=== PATIENT | female | born 1950 | race African-American/Black ===

== ENCOUNTER 2017-03-06 08:35 | Outpatient (CLI) | payer BC ==
--- NOTE | 2017-03-06 13:26 | CT ---
EXAM: ABDOMEN CT WITH CONTRAST PELVIC CT WITH CONTRAST: COMPARISON: 05/13/16, 11/19/16, 01/31/16. TECHNIQUE: Abdomen and pelvic CT is performed with IV and oral contrast. Reformatted images are submitted for i nterpretation. FINDINGS: ABDOMEN CT: Lung bases are clear. Heart size is within normal limits. No pericardial effusion. The descending thoracic aorta and abdominal aorta have a normal caliber. No periaortic fat stranding. Intra- and extrahepatic portal venin is patent. Hypoattenuation of the liver due to hepatic steatosis. No enhancing masses in the liver. The spleen , pancreas, and adrenal glands have stable enhancement. There is focal nodularity along the medial l imb of the left adrenal gland, measuring 0.6 cm. Evaluation is incomplete. Attenuation coefficient is 72 Hounsfield units. Symmetric enhancement of the kidneys. Bilaterally, no obstructive uropathy. No gastrohepatic, retrocrural, or periportal lymphadenopathy. No mesenteric mass, lymphadenopathy, free air ,or significant free fluid. There is a small amount of free fluid in the pelvis. Redemonstration of a soft tissue mass with a hyperdensity involving the midline of the abdomen. This mass measures 8.1 x 4.9 cm. There has been interval increase in size. Previously, this mass measur ed 5.5 x 6.8 cm. Intrinsic hyperdensity may represent calcification given the stable appearance. There is no evidence of bowel obstruction. Normal-appearing gastric mucosa and small bowel loops. I leocecal junction is normal. There appears to be a tiny contrast-filled appendix emanating from the cecal apex. There is no evidence of bowel obstruction. PELVIC CT: The urinary bladder is unremarkable. Hysterectomy changes are noted. Redemonstration of a predomina ntly cystic lesion of the right hemipelvis measuring 8.4 cm anterior posterior x 4.4 cm mediolateral x 7.9 cm craniocaudal. Previously, this mass measured 3.7 x 7.0 x 8.9 cm. Slight interval increase in size is noted. No pelvic lymphadenopathy. No free air. There are no lytic or blastic lesions. IMPRESSION: 1. Stable predominantly soft tissue mass in the anterior abdominal soft tissue structures. 2. Redemonstration of predominantly cystic mass in the right hemipelvis. POS: [facility]
[2017-03-06] MEDS ORDERED: Iopamidol 370 76% 50 ML VIAL FS ONE (15:24)
[2017-03-06] MEDS ORDERED: Iopamidol 370 76% 100 ML VIAL ONE (15:24)
== END 2017-03-06 08:36 | disposition home or self-care (01) ==
LOC: CT 08:35
PROVIDERS: ATTEND Internal Medicine Hematology & Oncology
DX: C18.7 Malignant neoplasm of sigmoid colon (principal); C78.7 Secondary malignant neoplasm of liver and intrahepatic bile duct; R19.07 Generalized intra-abdominal and pelvic swelling, mass and lump
CPT/HCPCS: 74177

== ENCOUNTER 2017-05-14 09:26 | Outpatient (CLI) | payer BC ==
[2017-05-14 10:30] LABS: Estimated GFR-MDRD - POC Greater than 90
--- NOTE | 2017-05-14 12:11 | CT ---
CT ANGIOGRAM OF THE CHEST: HISTORY: Possible PE noted on CT from 03/06/2017. The patient has a history of metastatic colon cancer. COMPARISON: None. CORRELATION: Abdomen and pelvis CT from 03/06/2017. TECHNIQUE: A CT angiogram of the chest was performed in the axial plane. Bilateral oblique and coronal three-di mensional reformatted images are submitted for interpretation. FINDINGS: No mediastinal mass, lymphadenopathy, or hematoma. Heart size is within normal limits. No pericardi al effusion. The thoracic aorta and upper abdominal aorta have a normal caliber. No periaortic fat stranding. There appears to be a common origin of the innominate artery and the left carotid artery. The trachea and central bronchi are patent. There are multiple well circumscribed lung parenchymal n odules, worrisome for metastases. The largest nodule is located in the middle lobe and measures 1.2 x 0.9 cm. Additional nodules are noted in both lower lobes and in both upper lobes. No pleural effu johanna or pneumothorax. The upper solid organs are unremarkable. Stable bilateral adrenal gland nodularity. There is adequate contrast opacification of the pulmonary arterial system, to the level of the segmen bayron arteries. No filling defect to suggest thromboembolism. The previously noted filling defect in the right lower lobe segmental and subsegmental arteries is not appreciated on the current exam. No lytic or blastic lesions. IMPRESSION: 1. No evidence of pulmonary artery embolism to the level of the segmental arteries. 2. The previously noted filling defect in the right lower lobe pulmonary arterial system is no longe r evident. POS: [facility]
== END 2017-05-14 09:27 | disposition home or self-care (01) ==
LOC: CT 09:26
PROVIDERS: ATTEND Internal Medicine Hematology & Oncology
DX: C18.7 Malignant neoplasm of sigmoid colon (principal); I26.99 Other pulmonary embolism without acute cor pulmonale
CPT/HCPCS: 71275

== ENCOUNTER 2018-02-23 07:54 | Outpatient (CLI) | payer MEDICARE ==
[2018-02-23 09:06] LABS: Estimated GFR-MDRD - POC Greater than 90
--- NOTE | 2018-02-23 10:59 | CT ---
CT ABDOMEN AND PELVIS WITH IV AND ORAL CONTRAST: History: Colon cancer. Restaging. Comparison: 05-14-17, 03-06-17 FINDINGS: At the lung bases, small calcified nodules have appeared since the prior CT abdomen from 03-06-17 and have enlarged since the CT chest from 05-14-17. At the right posterior costophrenic angle, a mass abu tting the pleura measures up to 0.9 cm. The largest on the left is a 0.7 cm nodule. Tiny left adrenal adenoma is stable. Solid organs of the abdomen are otherwise unremarkable. At the anterior abdominal wall just below the level of the umbilicus, the heterogeneous, somewhat lobulated low density mass h as not changed significantly in shape or appearance, measuring 8.8 cm length x 7.9 cm oblique width x 4.3 cm depth. Calcification throughout the arterial structures. Degenerative changes of the lumbar spine. The heterogeneous complex cystic lobular mass within the right lower pelvis now measures 8.8 cm lengt h x 9.9 cm depth x 5.5 cm width (previously 7.8 x 8.5 x 4.4 cm). IMPRESSION: 1. Interval enlargement of the complex cystic right lower pelvic mass as detailed above. 2. Stable CT appearance of the complex anterior lower abdominal mass. 3. Interval enlargement of the presumed lung base metastatic nodules. POS: [facility]
[2018-02-23] MEDS ORDERED: Iopamidol 370 76% 100 ML VIAL ONE (15:03)
[2018-02-23] MEDS ORDERED: Iopamidol 370 76% 50 ML VIAL FS ONE (15:03)
== END 2018-02-23 07:55 | disposition home or self-care (01) ==
LOC: CT 07:54
PROVIDERS: ATTEND Internal Medicine Hematology & Oncology
DX: C18.7 Malignant neoplasm of sigmoid colon (principal); C78.7 Secondary malignant neoplasm of liver and intrahepatic bile duct; R19.00 Intra-abdominal and pelvic swelling, mass and lump, unspecified site; R91.8 Other nonspecific abnormal finding of lung field
CPT/HCPCS: 74177; 82565

== ENCOUNTER 2018-05-06 07:44 | Outpatient (CLI) | payer MEDICARE ==
[2018-05-06] MEDS ORDERED: Iopamidol 370 76% 100 ML VIAL ONE (11:34)
[2018-05-06] MEDS ORDERED: Iopamidol 370 76% 50 ML VIAL FS ONE (11:34)
--- NOTE | 2018-05-06 12:29 | CT ---
CT CHEST WITH IV CONTRAST: CT ABDOMEN AND PELVIS WITH IV AND ORAL CONTRAST: HISTORY: Metastatic colon cancer. Restaging. COMPARISON: CT chest from 05/14/2017. CT abdomen and pelvis from 02/23/2018. FINDINGS: Multiple noncalcified nodules are again demonstrated throughout each lung. Some measure 1 to 2 mm la rger than on the prior study, on the axial images, and some measure 1 to 2 mm smaller than on the hawa ges from the prior CT chest exam. At the left posterior medial costophrenic angle, the 0.8 cm nodule on today's study is slightly larger than the 0.[address] chest one year ago and 0.[address] abdomen on 02/24/2008. No enlarged lymph nodes are apparent within the mediastinum. The liver, spleen, kidneys, adrenal glands, and pancreas are unremarkable. There is calcification in the arterial structures. Contrast-filled diverticulum projecting medially from the second portion o f the duodenum appears smaller than on the prior study. Postoperative changes, anterior abdominal wall. The lobular, heterogeneous soft tissue density mass, just deep to the anterior abdominal wall, below the level of the umbilicus, is unchanged in size and appearance, at 7.9 cm x 4.3 cm on the axial images. The peripherally enhancing fluid collection adj acent to the posterior aspect of the urinary bladder is also unchanged in size and appearance from pr ior CT, at 9.9 x 5.5 cm in diameter on the axial images. Where there was circumferential wall thicke robinson of the colon, in the right anterior abdomen, on the prior study, that same wall thickening and m ass-like appearance do not persist. No enlarged lymph nodes or free fluid are visible. IMPRESSION: 1. The mass-like appearance and circumferential wall thickening of the transverse colon, in the righ t anterior abdomen, has improved slightly since the prior study. The anterior abdominal solid mass a nd cystic mass within the pelvis are not changed, compared to the prior CT abdomen. 2. Of the bilateral and widespread lung nodules, there has been no significant overall change, as de tailed above. POS: [facility]
== END 2018-05-06 07:45 | disposition home or self-care (01) ==
LOC: CT 07:44
PROVIDERS: ATTEND Internal Medicine Hematology & Oncology
DX: C18.9 Malignant neoplasm of colon, unspecified (principal); C78.7 Secondary malignant neoplasm of liver and intrahepatic bile duct; R19.09 Other intra-abdominal and pelvic swelling, mass and lump; R19.8 Other specified symptoms and signs involving the digestive system and abdomen
CPT/HCPCS: 71260; 74177

== ENCOUNTER 2018-08-21 09:26 | Outpatient (CLI) | payer MEDICARE ==
--- NOTE | 2018-08-21 10:46 | CT ---
Exam: Chest CT with contrast Abdomen CT with contrast Pelvic CT with contrast HISTORY: Metastatic colon cancer. Patient has undergone chemotherapy. Correlation: None. COMPARISON: 05/06/2018, 02/23/2018. FINDINGS: Chest CT: Mediastinum: No mediastinal mass, lymphadenopathy or hematoma. Aorta: Normal caliber. No aneurysm, dissection or periaortic fat stranding. Heart: Normal heart size. No significant pericardial fluid. Trachea and central bronchi: Patent. Pleural spaces: Pleural effusion. Right lung: Multifocal right lung parenchymal metastases. Largest nodule in the right upper lobe kym ures 1.6 x 1.5 cm. Largest nodule in the right lower lobe measures 1.0 x 1.8 cm. Left lung:Multiple nodules. Largest nodule in the left upper lobe measures 0.9 x 0.8 cm. Largest nodu le in the left lower lobe measures 1.1 x 1.4 cm. Comparison made with previous CT demonstrates interval increase in size of the nodules. For example, the largest nodule noted in the right lower lobe previously measured 1.2 x 0.8 cm. Largest nodule in the right upper lobe previously measured 1.2 x 1.1 cm. Nodules in the left lung have also increase d in size. Nodule in the left lung apex previously measured 0.6 x 0.7 cm. Largest nodule in the left lower lobe previously measured 0.9 x 0.7 cm. Pneumothorax: None. Abdomen CT: Gallbladder: Unremarkable. Portal vein: Patent. Liver: Appropriate enhancement.. Spleen: Appropriate enhancement. Pancreas: Appropriate enhancement. Adrenal glands: There are multiple bilateral adrenal gland nodules, similar to the previous examinati on. Largest right adrenal nodule measures 1.4 x 1 1.0 cm. Nodule in the left adrenal gland measures 0.8 cm. Lymphadenopathy: No gastrohepatic, retrocrural or periportal lymphadenopathy. Kidneys: Symmetric enhancement. No obstructive uropathy. Mesentery: No mass, lymphadenopathy, free air or free fluid. Alimentary canal: No evidence of bowel obstruction. There is stable mucosal thickening involving the mid transverse colon. There is associated bowel wall thickening. This abnormal attenuation of the transverse colon is just deep to the findings involving the anterior abdominal wall as described noemi w. Redemonstration of hypoattenuation deep to the anterior abdominal rectus muscles and involving the an terior abdominal rectus muscles measuring 8.3 x 4[address]: Mixed attenuation predominantly hypodense mass in the right hemipelvis measuring 5.6 x 10.8 cm (previ ously measuring 5.5 x 9.8 cm. Osseous structures: No lytic or blastic lesions. IMPRESSION: 1. .Redemonstration of multifocal lung parenchymal metastases. Many of the multiple lung metastatic lesions have increased in size. 2. Redemonstration of a complex mass-like lesion in the right hemipelvis, unchanged. 3. Redemonstration of abnormal attenuation in the anterior abdominal wall. 4. Stable mucosal and wall thickening involving the mid transverse colon. 5. Bilateral adrenal nodularity. Transcribed Date/Time: 08/21/2018 11:18 AM
[2018-08-21] MEDS ORDERED: ISOVUE-370 76%-LOCM 1 ML ONE (16:20)
== END 2018-08-21 09:27 | disposition home or self-care (01) ==
LOC: BICCT 09:26
PROVIDERS: ATTEND Internal Medicine Hematology & Oncology
DX: C18.9 Malignant neoplasm of colon, unspecified (principal); C78.7 Secondary malignant neoplasm of liver and intrahepatic bile duct; E27.8 Other specified disorders of adrenal gland; K63.89 Other specified diseases of intestine; C78.01 Secondary malignant neoplasm of right lung; R19.00 Intra-abdominal and pelvic swelling, mass and lump, unspecified site
CPT/HCPCS: 71260; 74177; Q9966

== ENCOUNTER 2018-11-06 08:42 | Day surgery (SDC) | payer MEDICARE ==
[2018-11-06] MEDS ORDERED: Acetaminophen 500 MG TAB PO SCH (10:00)
[2018-11-06] MEDS ORDERED: diphenhydrAMINE 25 MG CAP PO SCH (10:00)
[2018-11-06] MEDS ORDERED: Sodium Chloride 0.9% 20 ML ONE (10:43)
[2018-11-06 14:35] LABS: Anisocytosis SLIGHT = 6-15 cells (100X) (0-5/hpf); Hemoglobin 8.8 g/dL (12.0-16.0); Lymphocytes 32 % (21-51); MDiff Complete? YES; Mean Corpuscular HGB CONC 32.1 g/dL (32.0-36.0); Mean Corpuscular Hemoglobin 31.3 pg (27.0-31.0); Mean Corpuscular Volume 97.4 fL (78.0-98.0); Mean Platelet Volume 10.3 fL (7.4-10.4); Monocytes 1 % (0-10); Neutrophil 67 % (42-75); Platelet Count 90 thou/uL (130-400); Platelet Morphology Comment Appears Decreased; RBC Distribution Width 16.5 % (11.5-14.5); Red Blood Cell (RBC) Count 2.82 mill/uL (4.20-5.40); White Blood Cell (WBC) Count 2.6 thou/uL (4.8-10.8)
[2018-11-06 16:44] VITALS: BP 169/74; TEMP 98.8
== END 2018-11-06 17:02 | disposition home or self-care (01) ==
LOC: ONC/OP 08:42
PROVIDERS: ATTEND Internal Medicine Hematology & Oncology
PROC: 30233N1 Transfusion of Nonautologous Red Blood Cells into Peripheral Vein, Percutaneous Approach (ICD-10-PCS; principal; 2018-11-06)
DX: D64.9 Anemia, unspecified (principal); D69.6 Thrombocytopenia, unspecified; Z88.2 Allergy status to sulfonamides; Z88.7 Allergy status to serum and vaccine; Z88.8 Allergy status to other drugs, medicaments and biological substances
CPT/HCPCS: 36430; 85025; 86850; 86900; 86901; J1642; P9016; Q0163

== ENCOUNTER 2019-01-05 07:57 | Outpatient (CLI) | payer MEDICARE ==
[2019-01-05 09:40] LABS: Estimated GFR-MDRD - POC Greater than 90
--- NOTE | 2019-01-05 10:28 | CT ---
CT CHEST AND ABDOMEN AND PELVIS WITH IV CONTRAST: HISTORY: Metastatic colon cancer. COMPARISON: 08/21/2018 FINDINGS: THORAX Lungs: Multiple bilateral pulmonary nodules are again seen within the lungs bilaterally. The larges t nodule in the right upper lobe previously measured 1.6 cm x 1.5 cm and now measures 2.3 cm x 2.2 cm. The largest pleural-based pulmonary nodule in the right lower lobe previously measured 1.8 cm x 1 cm and now measures 2.7 cm x 1.8 cm. The largest pulmonary nodule measured in the left lower lobe on the prior study measured 1.5 cm x 1.2 cm and now measures 2.1 cm x 1.3 cm. There is an enlar ged pleural-based pulmonary nodule seen in superior segment right lower lobe previously measuring 2.3 cm x 1.6 cm and now measures 2.9 cm x 1.7 cm. No definite new pulmonary nodule is seen but there has been slight interval increase in size of all of the previously noted bilateral pulmonary nodules. Pleura: A very tiny right pleural effusion is present. Lymph nodes: No lymphadenopathy. Mediastinum: The right internal jugular vein Mediport catheter remains in place. No enlarged medias tinal lymph nodes are seen. Chest wall: No abnormalities. ABDOMEN AND PELVIS: Liver: Within normal limits. Gallbladder: Within normal limits. \ Pancreas: Within normal limits. Spleen: Within normal limits. Adrenal glands: Tiny left adrenal nodule measuring less than 1 cm is again seen and stable. The two closely adjacent nodules involving the right adrenal gland are again seen and also stable in size each again measuring less than 1 cm. Kidneys: Within normal limits. Urinary Bladder: Mostly decompressed. Reproductive organs: A normal-appearing uterus is not visualized and may be surgically absent or poli y small in size. Bowel: Normal in caliber. Adenopathy: No lymphadenopathy within the abdomen or pelvis. Peritoneum/retroperitoneum: Previously noted lobulated heterogeneous mass in the right aspect of the pelvis is again seen posterior and lateral to the urinary bladder with greatest axial dimensions on prior study of 10.9 cm x 5.6 cm and dimensions on today's examination of 11.3 cm x 6.1 cm. Abdominal wall: Post surgical changes of the anterior abdominal wall in an infraumbilical location a re noted with an area of slight increased density, which may be related to an area of scarring, however the previously noted lobulated heterogeneous mass like density within the abdominal wall at t he level of the lower aspect of the rectus abdominis musculature is again seen with this heterogenous mass like area previously measuring 8.3 cm transverse by 4.6 cm AP with measurement obta ined on today's examination of 9.7 cm transverse by 5.3 cm AP. There is circumferential wall thickening involving a small portion of the colon adjacent to the mass in the anterior abdominal wall and the area of masslike thickening does persist on today's exam. Osseous structures: Degenerative changes are seen in the spine. No suspicious lytic or sclerotic os seous lesions are identified. IMPRESSION: 1. Diffuse metastatic lung disease with multiple bilateral pulmonary nodules, all of which have incr eased in size from prior exam. No new pulmonary nodule is seen. 2. The complex cystic mass like lesion with associated solid component is again seen in the right he mipelvis with measurements slightly increased from prior study. 3. Abnormal mass like attenuation in the anterior abdominal wall at the level of the pelvis. This ar ea of masslike heterogeneity has slightly increased in size from the prior exam. 4. Stable area of mucosal thickening involving the mid transverse colon, which extends into the pelv is. This area of mass like thickening is adjacent to the mass like attenuation in the abdominal wall. 5. Stable nodules in each adrenal gland. Transcribed Date/Time: 01/05/2019 10:45 AM
== END 2019-01-05 07:58 | disposition home or self-care (01) ==
LOC: CT 07:57
PROVIDERS: ATTEND Internal Medicine Hematology & Oncology
DX: C18.9 Malignant neoplasm of colon, unspecified (principal); C78.7 Secondary malignant neoplasm of liver and intrahepatic bile duct; R91.8 Other nonspecific abnormal finding of lung field; E27.8 Other specified disorders of adrenal gland; K63.89 Other specified diseases of intestine; R19.09 Other intra-abdominal and pelvic swelling, mass and lump
CPT/HCPCS: 71260; 74177; 82565

== ENCOUNTER 2019-05-25 08:24 | Outpatient (CLI) | payer MEDICARE ==
--- NOTE | 2019-05-25 11:18 | CT ---
EXAM: CT chest, abdomen, and pelvis with IV contrast: HISTORY: Metastatic colon cancer. Evaluate for treatment response. Patient currently on chemotherapy. COMPARISON: 01/05/2019. FINDINGS: CT THORAX: Lungs: Multiple bilateral pulmonary nodules are again seen diffusely throughout the lungs bilaterally . Largest nodule in the right upper lobe measures 2.8 cm x 2.3 cm with prior measurement of 2.3 cm x 2.2 cm. This nodule now demonstrates cavitation. Largest pleural-based pulmonary nodule in the righ t lower lobe previously measured 2.9 cm x 1.7 cm and now measures 3.5 cm x 1.7 cm and demonstrates cavitation. There has been interval cavitation of several additional bilateral pulmonary nodules. The re has been interval enlargement of a left lower lobe pulmonary nodule which is also now cavitated measuring 1.7 cm x 1.6 cm, and on the prior study this left lower lobe pulmonary nodule measured 1.3 cm x 1.1 cm. There has also been slight interval enlargement of additional pulmonary nodules. No new pulmonary nodules are seen. Pleura: Tiny bilateral pleural effusions are present. Lymph nodes: No lymphadenopathy. Mediastinum: Trace pericardial effusion is present. A right internal jugular vein Mediport catheter i s again seen. Small hiatal hernia is present. Chest wall: No abnormalities CT ABDOMEN AND PELVIS: Liver: Within normal limits. Gallbladder: Within normal limits. \ Pancreas: Within normal limits. Spleen: Within normal limits. Adrenal glands: 2 closely adjacent right adrenal nodules with tiny left adrenal nodule are again seen and stable in size and appearance. Kidneys: There is mild right hydronephrosis and hydroureter also present on prior exam. Left kidney h as a normal CT appearance Urinary Bladder: Decompressed. Reproductive organs: Normal appearing uterus is not visualized. May be surgically absent or small in size. Bowel: Persistent area of abnormal bowel wall thickening involving the mid transverse colon which is contiguous with lobulated mass in the anterior abdominal wall. There is no evidence of a bowel obstruction. Peritoneum/retroperitoneum: Previously noted lobulated heterogeneous mass in the central and right as pect of the pelvis is again seen measuring 10 cm craniocaudal x11 cm AP x6.2 cm transverse, and these measurements are similar to prior exam. This does result in mass effect on the adjacent urinary bladder. Abdominal wall: Again noted is a large heterogeneous mass seen in the anterior abdominal wall the lev el of the pelvis with areas of enhancement. This area has continued to enlarge when dating back to a prior study in 2018 where this area of abnormal attenuation measured 7.9 cm x 4.3 cm in axial dimen sions and now measures 12 cm x 6.2 cm. Findings could represent soft tissue sarcoma in this region. This is in the region of incision site. Adenopathy:No lymphadenopathy within the abdomen or pelvis. Osseous structures: Multilevel degenerative changes in the spine. No suspicious lytic or sclerotic os seous lesions are identified. IMPRESSION: 1. Diffuse metastatic lung disease with multiple bilateral pulmonary nodules some of which have incre ased in size from the prior exam with several of the pulmonary nodules now demonstrating cavitation. 2. Complex cystic mass in the pelvis is again seen with measurements similar to study on 01/05/2019. 3. Interval enlargement of mass within anterior pelvis in the anterior abdominal wall. There are area s of enhancement within this mass. This mass continues to enlarge when dating back to study in 2018. Masslike area of thickening involving the mid transverse colon which appears contiguous with th is lobulated mass is again seen. Findings could be related to patient's colonic neoplasm with extension of the mass into the soft tissues. However, soft tissue sarcoma with involvement of a porti on of the colon in this region is also a possibility. 4. Stable adrenal nodules.
[2019-05-25] MEDS ORDERED: Iopamidol 370 76% 100 ML VIAL ONE (14:39)
[2019-05-25] MEDS ORDERED: Iopamidol 370 76% 50 ML VIAL FS ONE (14:39)
== END 2019-05-25 08:25 | disposition home or self-care (01) ==
LOC: CT 08:24
PROVIDERS: ATTEND Internal Medicine Hematology & Oncology
DX: C18.9 Malignant neoplasm of colon, unspecified (principal); C78.7 Secondary malignant neoplasm of liver and intrahepatic bile duct; C78.00 Secondary malignant neoplasm of unspecified lung; R91.8 Other nonspecific abnormal finding of lung field; R19.07 Generalized intra-abdominal and pelvic swelling, mass and lump; E27.8 Other specified disorders of adrenal gland
CPT/HCPCS: 71260; 74177; Q9967

== ENCOUNTER 2019-08-13 07:49 | Outpatient (CLI) | payer MEDICARE ==
[2019-08-13] MEDS ORDERED: Iopamidol 370 76% 100 ML VIAL ONE (09:56)
--- NOTE | 2019-08-13 12:32 | CT ---
CT OF CHEST AND ABDOMEN AND PELVIS PERFORMED WITH INTRAVENOUS CONTRAST ENHANCEMENT: HISTORY: Metastatic colon cancer evaluation for therapeutic response. COMPARISON: A 05/25/2019 exam. FINDINGS: Numerous bilateral pulmonary nodules are again identified. Some of these are cavitary in appearance. The number has not increased. There has not been any improvement in the size. There is subtle hetal nge that suggest some slight worsening. This is mainly related to a pleural-based nodule seen in the superior segment of the right lower lobe axial image 28. It measures 3.7 cm in maximum dimension as compared to 3.5 cm, not a significantly difference, but it no longer has a cavitary appearance. Felix e other nodules show very subtle questionable increase in size of 1-2 mm. There is no significant mediastinal or hilar or axillary lymphadenopathy. CT OF ABDOMEN PERFORMED WITH CONTRAST ENHANCEMENT: There are diffuse fatty changes of the liver which is within normal limits of size. The spleen, panc reas, and gallbladder regions appear unremarkable. Right and left adrenal glands are stable in appearance, nodularity unchanged. Right and left kidneys are normal in size. A tiny hypodensity involving the left kidney was compatible with a cyst. There is some minimal dilatation of the right collecting system and right ureter related to the somewhat o blong-shaped deeper pelvic mass which is stable in size measuring 6.3 x 11 cm which is basically the same measurement as was obtained on the prior examination. There is no significant periaortic or mes enteric adenopathy. The soft tissue mass seen in the lower abdomen and upper pelvis region involving the region of the an terior wall abdominal musculature is also unchanged in appearance. It measures 6.5 x 11.6 cm in size as compared to measurements obtained at the same level of 6.2 x 12 cm on the prior study. Review of osseous structures does not show any lytic or blastic bony change. IMPRESSION: 1. No improvement in the appearance of the chest, abdomen, or pelvis. There has been some very subt le increase in size of some of the pulmonary nodules. 2. Stable appearance to the soft tissue mass along the lower abdominal wall musculature and the deep er pelvic mass. 3. There is nodular appearance to both adrenal glands. POS: [facility]
== END 2019-08-13 07:50 | disposition home or self-care (01) ==
LOC: CT 07:49
PROVIDERS: ATTEND Internal Medicine Hematology & Oncology
DX: C18.7 Malignant neoplasm of sigmoid colon (principal); C78.7 Secondary malignant neoplasm of liver and intrahepatic bile duct; R91.8 Other nonspecific abnormal finding of lung field
CPT/HCPCS: 71260; 74177; Q9967

== ENCOUNTER 2019-08-28 12:13 | Inpatient (IN) | payer MEDICARE ==
[~2019-08-28 12:13] MED LIST: Iopamidol-370 76% 500 ML 1 ML ONE
[2019-08-28] MEDS ORDERED: Metoclopramide HCl 10 MG/2 ML VIAL ONE (12:32)
[2019-08-28] MEDS ORDERED: Morphine 4 MG/ML VIAL ONE (12:32)
[2019-08-28] MEDS ORDERED: Cefepime 2 GM VIAL ONE (12:32)
--- NOTE | 2019-08-28 12:49 | RAD ---
EXAM: XR Chest 1 View Portable PROVIDED CLINICAL HISTORY: Fever and abdominal pain COMPARISON: CT 08/13/2019 FINDINGS: Cardiac and mediastinal silhouette is within normal limits. Right IJ implanted port is noted, tip pro jecting in expected region of SVC. Numerous bilateral pulmonary nodules are redemonstrated including cavitary nodule involving the left lung. There is no pleural fluid or pneumothorax apparent . IMPRESSION: Bilateral pulmonary nodules are redemonstrated, compatible with known metastatic disease.
[2019-08-28 12:50] LABS: #Eosinphils 0.2 thou/uL (0.0-0.7); #Lymphocytes 1.8 thou/uL (1.20-3.40); #Monocytes 0.6 thou/uL (0.11-0.59); #Neutrophils 9.5 thou/uL (1.40-6.50); %Basophils 0.3 % (0.0-1.0); %Eosinophils 1.7 % (0.0-10.0); %Lymphocytes 15.1 % (21.0-51.0); %Monocytes 4.5 % (0.0-10.0); %Neutrophils 78.4 % (42.0-75.0); Hemoglobin 12.3 g/dL (12.0-16.0); Mean Corpuscular HGB CONC 32.1 g/dL (32.0-36.0); Mean Corpuscular Hemoglobin 28.9 pg (27.0-31.0); Mean Platelet Volume 7.7 fL (7.4-10.4); Platelet Count 410 thou/uL (130-400); RBC Distribution Width 15.4 % (11.5-14.5); Red Blood Cell (RBC) Count 4.26 mill/uL (4.20-5.40); White Blood Cell (WBC) Count 12.1 thou/uL (4.8-10.8)
[2019-08-28 13:12] LABS: ALT (SGPT) 20 U/L (8-55); AST (SGOT) 21 U/L (5-34); Albumin 3.5 g/dL (3.4-4.8); Alkaline Phosphatase 72 U/L (40-110); Anion Gap 18 mmol/L (10-20); BUN (Urea Nitrogen) 6 mg/dL (9.8-20.1); Bilirubin, Total 0.8 mg/dL (0.2-1.2); Calc. Creatinine Clearance 0 mL/min (70-130); Carbon Dioxide 27 mmol/L (23-31); Chloride 101 mmol/L (98-107); Estimated GFR-MDRD 88; Globulin 4.1 g/dL (2.4-3.5); Glucose 149 mg/dL (80-115); Lipase Less than 4 U/L (8-78); Protein, Total 7.6 g/dL (6.0-8.3); Sodium 143 mmol/L (136-145)
[2019-08-28 13:26] LABS: Calcium 5.9 mg/dL (7.8-10.44)
--- NOTE | 2019-08-28 13:53 | CT ---
EXAM: CT Abdomen Pelvis W Con PROVIDED CLINICAL HISTORY: Abdominal pain COMPARISON: 08/13/2019 FINDINGS: Bilateral pulmonary nodules are redemonstrated, similar to prior. The liver, spleen, pancreas, kidneys and adrenal glands demonstrate a stable CT appearance. There is moderate gallbladder distention without pericholecystic inflammatory change. Anterior abdominal wall soft tissue masses are redemonstrated, without significant interval change wi th respect to prior. Soft tissue mass within the pelvic cul-de-sac region demonstrates interval decrease in size and now demonstrates interval gas, suggesting either communication with the adjacent rectum or necrosis related to therapy. There is no evidence for bowel obstruction. No inflammatory fat stranding, free fluid or free air isabella arent. No regional lymph node enlargement evident. The osseous structures demonstrate no concerning lytic or blastic lesions. IMPRESSION: 1. Interval decrease in size of pelvic cul-de-sac mass, now demonstrating internal gas that may be on the basis of necrosis or communication with the rectum. 2. Additional significant interval change with respect to the prior examination is not apparent.
[2019-08-28 14:13] LABS: Bacteria/HPF None Seen HPF (None Seen); Bilirubin Negative (Negative); Blood, Urine Negative (Negative); Clarity Clear (Clear); Glucose, Urine (Dipstick) Normal (Negative); Leukocyte 250 Leu/uL (Negative); Nitrite Negative (Negative); Protein, Urine (Dipstick) 20 mg/dL (Neg-Trace); RBC/HPF 0-3 HPF (0-3)
[2019-08-28 15:51] LABS: Lactic Acid 0.9 mmol/L (0.5-2.2)
[2019-08-28] MEDS ORDERED: Acetaminophen 325 MG TAB PO PRN (16:38)
[2019-08-28] MEDS ORDERED: Potassium Chloride 20 MEQ TAB PO SCH (16:45)
[2019-08-28 17:24] VITALS: BMI 33.7
[2019-08-28] MEDS: Sodium Chloride 0.9% 1,000 ML IV SCH (17:37)
[2019-08-28] MEDS ORDERED: Magnesium 2 GM/50 ML 2 GM in Premix Bag 1 BAG IVPB SCH (18:15)
[2019-08-28] MEDS ORDERED: Ergocalciferol 1.25 MG(50,000 UNITS) CAP PO SCH (18:45)
[2019-08-28] MEDS: Morphine 4 MG/ML VIAL SLOW IVP PRN ×2 (19:18→23:57)
--- NOTE | 2019-08-28 19:28 | HP ---
PRIMARY CARE PHYSICIAN: Dr. Jules at [facility]. CHIEF COMPLIANT: The patient presents for evaluation of abdominal pain. HISTORY OF PRESENT ILLNESS: The patient is a 68-year-old female with past medical history significant for colon cancer which she is currently getting chemp treatment for. She presents today to the ER for abdominal pain and fever. This pain began approximately 1 week ago and it is more severe in the right lower quadrant, where she states her tumor is from her colon cancer. Denies any relieving factors or exacerbating factors related to this pain. She denies any ill contacts. She had a subjective fever of 102 at home. She has also noted mucoid type bowel movements over the past few weeks. Regarding the mucoid type bowel movement, she has had numerous stool tests completed through [facility], which have all resulted as negative so far per the ER physician. In the ER today, she was seen, evaluated and they completed a CT of the abdomen and pelvis with contrast, which actually showed a decrease in the size of the pelvic cul-de-sac mass. No evidence of bowel obstruction. No regional lymph node enlargement evident. She was swabbed for flu A and B and both were negative. Her lactic acid was elevated at 3.4 along with her white blood cells being elevated at 12.1, so she received a liter of normal saline, vancomycin 2 g IV, Levaquin 750 mg IV, cefepime 2 g IV. She also received Reglan 10 mg and Morphine 4 mg, both IV while in the ER. She is to be admitted to the Oncology unit. PAST MEDICAL HISTORY: Colon cancer, hypertension, and depression. PAST SURGICAL HISTORY: Colon resection, and hysterectomy. ALLERGIES: COMPAZINE, SULFA, TETANUS, AND BACTRIM. MEDICATIONS: Per ER records, will reconcile once to unit amLODIPine Sat August 28, 2019 15:03 LADI Siddiqui Lacee TABLET : Strength - 10 mg : ORAL Patient Dose: 1 tab(s) Oral once a day. losartan Sat August 28, 2019 15:03 LADI Siddiqui Lacee TABLET : Strength - 100 mg : ORAL Patient Dose: 1 tab(s) Oral once a day. metoprolol tartrate oral Sat August 28, 2019 15:03 LADI Siddiqui Lacee TABLET : Strength - 100 mg : ORAL Patient Dose: 1 tab(s) Oral once a day. Zofran ODT Sat August 28, 2019 15:03 LADI Siddiqui Cassandra TABLET,DISINTEGRATING : Strength - 4 mg : ORAL Patient Dose: 12 tab(s) Oral As Needed. diphenoxylate-atropine Sat August 28, 2019 15:03 LADI Siddiqui, Cassandra tablet : Strength - 2.5 mg-0.025 mg : ORAL Patient Dose: Unknown. PriLOSEC capsule,delayed release Sat August 28, 2019 15:04 LADI Siddiqui, Cassandra capsule,delayed release(DR/EC) : Strength - 20 mg : ORAL Patient Dose: 1 tab(s) Oral once a day. Stivarga Sat August 28, 2019 15:04 LADI Siddiqui, Cassandra tablet : Strength - 40 mg : ORAL Patient Dose: Unknown. venlafaxine Sat August 28, 2019 15:05 LADI Siddiqui, Cassandra tablet extended release 24hr : Strength - 37.5 mg : ORAL Patient Dose: 2 tab(s) Oral once a day. SOCIAL HISTORY: The patient lives at home with her . She denies smoking , any alcohol use, or any illicit drug use. FAMILY HISTORY: Her mother at the age of 82 from ovarian cancer and her father from prostate cancer at the age of 87. REVIEW OF SYSTEMS: All other review of systems are negative unless indicated in the HPI. PHYSICAL EXAMINATION: VITAL SIGNS: Blood pressure 144/81, pulse 72, respiratory rate 16, temperature 98.7 orally, pain 5, O2 saturation 99% on room air. GENERAL: Awake, alert, responsive, in no apparent distress. NECK: Supple, nontender. No lymphadenopathy. No JVD. LUNGS: Clear to auscultation bilaterally. No wheezing, rhonchi, or rales. HEART: Normal S1 and S2. Regular rate and rhythm. No significant murmurs. No gallops. ABDOMEN: Soft, present bowel sounds. Tenderness noted diffusely, but greater in the right lower quadrant. Mass palpated in the right lower quadrant. EXTREMITIES: No edema noted. Peripheral pulses are intact. NEUROLOGIC: No focal deficits. Cranial nerves intact. PSYCHIATRIC: Appropriate behavior. LABORATORY DATA: Potassium low at 3.0, creatinine 0.79, GFR 88. BUN 6, glucose 149, calcium 5.9, lactic acid 2.4, white blood cell 12.1, hemoglobin 12.3, hematocrit 38.4, platelets 410. IMPRESSION: 1. Abdominal pain, acute. 2. Colon cancer, chronic. 3. Hypertension. PLAN: 1. Inpatient status in the hospital at the Oncology unit. 2. Oncology Services to be consulted. 3. Palliative Care Services to be consulted. The patient wishes to discuss future plans and goals with them. 4. We will continue the patient on empiric antibiotics, 5. Lab to draw vitamin D and magnesium levels and replace as necessary. 6. Pain control with morphine, which helped her in the ER. 7. Await blood and urine culture results. 8. Replace potassium, calcium and other electrolytes. 9. DVT prophylaxis of Lovenox 40 mg daily. CODE STATUS: FULL, discussed with patient DPOA is her , Monroe Taylor, phone #[phone] and [phone]. Job ID: [id number] [facility]
[2019-08-28] MEDS: Calcium Carbonate 500 MG ChewTAB PO SCH (20:45)
[2019-08-28] MEDS: Cefepime 2 GM in Sodium Chloride 0.9% 100 ML IVPB SCH (23:52)
[2019-08-29] MEDS ORDERED: HYDROcodone/Acetaminophen 10/325 mg Tablet PO PRN ×2 (00:47→00:52)
[2019-08-29] MEDS ORDERED: Vancomycin 1.5 GRAM/300 ML BAG 1.5 GM in Premix Bag 1 BAG IVPB SCH (03:00)
[2019-08-29] MEDS: HYDROcodone/Acetaminophen 10/325 mg Tablet PO PRN (05:46)
[2019-08-29 06:27] LABS: Anion Gap 12 mmol/L (10-20); BUN (Urea Nitrogen) 4 mg/dL (9.8-20.1); Calc. Creatinine Clearance 120 mL/min (70-130); Carbon Dioxide 27 mmol/L (23-31); Chloride 107 mmol/L (98-107); Estimated GFR-MDRD Greater than 90; Glucose 111 mg/dL (80-115); Sodium 143 mmol/L (136-145)
[2019-08-29 06:48] LABS: Calcium 5.3 mg/dL (7.8-10.44); Potassium 2.9 mmol/L (3.5-5.1)
[2019-08-29 07:08] LABS: #Eosinphils 0.1 thou/uL (0.0-0.7); #Lymphocytes 1.5 thou/uL (1.20-3.40); #Monocytes 0.6 thou/uL (0.11-0.59); %Basophils 0.4 % (0.0-1.0); %Eosinophils 1.3 % (0.0-10.0); %Lymphocytes 14.9 % (21.0-51.0); %Monocytes 5.9 % (0.0-10.0); %Neutrophils 77.5 % (42.0-75.0); Hemoglobin 9.9 g/dL (12.0-16.0); Mean Corpuscular HGB CONC 31.7 g/dL (32.0-36.0); Mean Corpuscular Hemoglobin 28.8 pg (27.0-31.0); Mean Corpuscular Volume 90.7 fL (78.0-98.0); Mean Platelet Volume 7.5 fL (7.4-10.4); Platelet Count 326 thou/uL (130-400); RBC Distribution Width 15.4 % (11.5-14.5); Red Blood Cell (RBC) Count 3.44 mill/uL (4.20-5.40); White Blood Cell (WBC) Count 10.3 thou/uL (4.8-10.8)
[2019-08-29] MEDS ORDERED: Calcium Gluconate 4.6 MEQ in Sodium Chloride 0.9% 100 ML IVPB SCH (07:28)
[2019-08-29] MEDS ORDERED: Magnesium 2 GM/50 ML 2 GM in Premix Bag 1 BAG IVPB SCH (07:30)
[2019-08-29] MEDS ORDERED: Potassium Chloride 20 MEQ TAB PO SCH ×2 (08:00→12:00)
--- NOTE | 2019-08-29 08:04 | PDOC.HOSPP ---
- Subjective Encounter Date: 08/29/19 Encounter Time: 08:30 Subjective: Patient seen and examined at this time. States she is feeling so much better than the previous day, her pain has decreased and is being controlled with [place] and her diarrhea has decreased. - Objective Vital Signs & Weight: Vital Signs (12 hours) Temp Pulse Resp BP Pulse Ox 08/29/19 05:40 98.7 F 68 18 143/62 H 98 08/29/19 00:00 98.9 F 62 133/64 95 Weight Weight 203 lb 3 oz I&O: 08/28/19 08/29/19 08/30/19 06:59 06:59 06:59 Intake Total 680 1139 Balance 680 1139 Result Diagrams: 08/29/19 05:59 08/29/19 05:59 Hospitalist ROS - Medication Medications: Active Medications Generic Name Dose Route Start Last Admin Trade Name Freq PRN Reason Stop Dose Admin Hydrocodone Bitart/Acetaminophen 2 tab 08/29/19 00:47 08/29/19 05:46 [place] 10/325 PO 2 tab Q6H PRN Administration Severe Pain (7-10) Calcium Carbonate 1,000 mg 08/28/19 21:00 08/28/19 20:45 Tums PO 1,000 mg BID ZARIA Administration Sodium Chloride 1,000 mls @ 75 mls/hr 08/28/19 16:38 08/28/19 17:37 Normal Saline 0.9% IV 1,000 mls .[id number] ZARIA Administration Cefepime HCl 2 gm/ Sodium 100 mls @ 200 mls/hr 08/28/19 23:59 08/28/19 23:52 Chloride IVPB 100 mls 1200,2359 ZARIA Administration Vancomycin HCl 1.5 gm/ Device 300 mls @ 200 mls/hr 08/29/19 03:00 08/29/19 03 :09 IVPB 300 mls 0300,1500 ZARIA Administration Sodium Chloride 10 ml 08/28/19 22:05 08/28/19 23:58 Flush - Normal Saline IVF 10 ml PRN PRN Administration Saline Flush - Exam General Appearance: NAD, awake alert Eye: PERRL, anicteric sclera Neck: supple, symmetric, no JVD, no lymphadenopathy Heart: RRR, no murmur, no gallops, no rubs, normal peripheral pulses Respiratory: CTAB, no wheezes, no rales, no ronchi Gastrointestinal: soft, non-distended, normal bowel sounds, tender to palpation Gastrointestinal - other findings: palpable mass to lower R quadrant Extremities: no cyanosis, no edema Skin: normal turgor, no lesions, no rashes Neurological: no focal deficits Musculoskeletal: normal tone, normal strength Psychiatric: normal affect, normal behavior Hosp A/P (1) Abdominal pain Code(s): R10.9 - UNSPECIFIED ABDOMINAL PAIN Status: Acute Qualifiers: Abdominal location: generalized Qualified Code(s): R10.84 - Generalized abdominal pain (2) UTI (urinary tract infection) Status: Acute (3) Hypertension Code(s): I10 - ESSENTIAL (PRIMARY) HYPERTENSION Status: Chronic Qualifiers: Hypertension type: essential hypertension Qualified Code(s): I10 - Essential (primary) hypertension (4) Metastatic colon cancer in female Code(s): C78.5 - SECONDARY MALIGNANT NEOPLASM OF LARGE INTESTINE AND RECTUM Status: Chronic - Plan Consults: Palliative Care Continue to replace potassium, magnesium, calcium Await oncology and palliative care consults Waiting on cultures to result- no growth currently, continue antibiotics Pain management Resume home medications
[2019-08-29] MEDS: Calcium Carbonate 500 MG ChewTAB PO SCH ×2 (08:09→20:11)
[2019-08-29] MEDS: Enoxaparin Sodium 40 MG/0.4 ML SYRINGE SC SCH ×2 (08:10→08:19)
[2019-08-29] MEDS: Sodium Chloride 0.9% 1,000 ML IV SCH (08:11)
[2019-08-29] MEDS: Metoprolol Tartrate 100 MG TAB PO SCH ×2 (08:21→20:11)
[2019-08-29] MEDS: Venlafaxine HCl XR 75 MG CAP PO SCH (08:21)
[2019-08-29] MEDS: Cefepime 2 GM in Sodium Chloride 0.9% 100 ML IVPB SCH (12:52)
[2019-08-29 15:40] LABS: Anion Gap 12 mmol/L (10-20); BUN (Urea Nitrogen) 6 mg/dL (9.8-20.1); Calc. Creatinine Clearance 106 mL/min (70-130); Carbon Dioxide 26 mmol/L (23-31); Chloride 108 mmol/L (98-107); Estimated GFR-MDRD Greater than 90; Glucose 110 mg/dL (80-115); Potassium 3.5 mmol/L (3.5-5.1); Sodium 142 mmol/L (136-145)
--- NOTE | 2019-08-29 17:19 | PDOC.EVN ---
Event Note - Event Note Event Note: Patient seen and examined and discussed with Salome FARR., and agree with her assessment. Ms. Taylor says that the abdominal pain is at a level of 6/10 even with the Fentanyl patch, but it was just placed about 45 minutes before I saw her. She says her appetite has improved. No new complaints., on exam, she has some lower abdominal tenderness, but no rebound or guarding, bowel sounds are present. Will continue with empiric antibiotics, and will correct electrolytes as needed. Continue Fentanyl and [place] for break-through pain.
--- NOTE | 2019-08-29 19:29 | CON ---
DATE OF CONSULTATION: 08/29/2019 HISTORY OF PRESENT ILLNESS: Ms. Taylor is a 68-year-old female with a longstanding history of metastatic colon cancer with multiple metastases to the pelvis including the right ovary and the left pelvis. These masses have been slowly growing over the last few months, on Stivarga oral treatment. We did about 10 days ago have a discussion about the fact that the Stivarga was no longer working adequately and that she had very few treatment options left. At that time, she declined referral for a clinical trial and also declined hospice, but I did refer her to palliative care. Since that visit in the office, she has developed acute-onset diarrhea with some blood in the stool. She also had worsening abdominal pain as well as fever at home up to 102. She presented to the emergency room. She had stopped her Stivarga, although this was not thought to be the cause of the diarrhea. On admission here, CAT scan showed a new finding of air found in the pelvic mass and some concern for necrosis versus infection. She was admitted for further workup. She has been on IV antibiotics for almost 24 hours and IV fluids and states she does feel better. Her abdominal pain continues. She has less diarrhea, but still has incontinence. She has not noticed blood in her stool since admission. PAST MEDICAL HISTORY: 1. Metastatic colon cancer, progressing to multiple lines of therapy. 2. Longstanding history of right lower quadrant abdominal pain secondary to metastatic disease. 3. Hypertension. 4. depression. CURRENT MEDICATIONS: 1. Tylenol p.r.n. 2. Clever p.r.n. 3. Tums 1000 mg p.o. b.i.d. 4. Cefepime 2 g IV q.12 hours. 5. Lovenox 40 mg subcu daily. 6. Drisdol 1.25 mg p.o. q.7 days. 7. Levaquin 750 mg IV q.24 hours. 8. Lopressor 50 mg p.o. b.i.d. 9. Morphine 2 mg IV q.4 hours p.r.n. 10. Protonix 40 mg p.o. daily. 11. K-Dur 40 mEq p.o. daily. 12. Vancomycin 1.5 g IV q.12 hours. 13. Effexor 75 mg p.o. daily. ALLERGIES: COMPAZINE AND TETANUS. SOCIAL HISTORY: She lives in town with her , who is quite supportive. She denies tobacco or alcohol use. Her daughter is also quite supportive and involved in her care. FAMILY HISTORY: Noncontributory. REVIEW OF SYSTEMS: Otherwise 10-point review of systems is negative. Please see the history of present illness. PHYSICAL EXAMINATION: VITAL SIGNS: Temperature 98.9, blood pressure 143/62, pulse 68, respirations 16 to 18, O2 saturation 98% on room air. GENERAL: She is sitting up eating lunch, in no acute distress. Pleasant. HEENT: Extraocular muscles are intact. Pupils are equal, round, and reactive to light. Oral cavity has no lesions. NECK: Supple without lymphadenopathy. CARDIOVASCULAR: Regular rhythm. LUNGS: Clear to auscultation. ABDOMEN: Hypoactive bowel sounds. Soft. She is tender in the right lower quadrant and right flank. EXTREMITIES: No edema. LABORATORY DATA: White blood cell count 10.3; hemoglobin 9.9, down from 12.3 yesterday; platelets 326. Sodium 143, potassium 2.9, chloride 107, CO2 of 27, BUN 4, creatinine 0.6, calcium 5.3, magnesium 1.5, vitamin D 4.2. CT of the abdomen and pelvis done in the emergency room shows interval decrease in size in the pelvic cul-de-sac mass, now demonstrating internal gas that may be on the basis of necrosis or communication with the rectum. The anterior abdominal wall soft tissue mass is redemonstrated without significant change. ASSESSMENT: Ms. Taylor is a 68-year-old female with: 1. Known metastatic colorectal cancer. 2. Pelvic cul-de-sac mass, now communicating with the rectum. 3. Diarrhea and hematochezia secondary to the above. 4. Abdominal pain secondary to metastatic colorectal cancer. PLAN: 1. She is already aware of the diagnosis and prognosis. I do think her symptoms now are likely because of communication between the mass in her rectum. She is likely to continue to have these symptoms despite trying to control the diarrhea. I would recommend a palliative care consult, I would also recommend she consider hospice, although I do not know if she is willing to consider that now. We will continue to discuss. 2. Continue antibiotics, she may need to be on chronic antibiotics for suppression, she is likely seeding her bloodstream because of the mass communicating with the rectum. 3. Continue antidiarrheal agents, although I am not sure these will be successful given the masses eroding into the rectum. 4. Add fentanyl patch for pain, we have discussed this as an outpatient, but she was unable to get it approved. We will start it here. 5. we will follow with you. Job ID: [id number]
[2019-08-29] MEDS: Morphine 2 MG/ML SYRINGE SLOW IVP PRN (20:10)
[2019-08-30] MEDS: Cefepime 2 GM in Sodium Chloride 0.9% 100 ML IVPB SCH ×3 (00:29→23:57)
[2019-08-30] MEDS: Morphine 2 MG/ML SYRINGE SLOW IVP PRN ×5 (00:29→23:57)
[2019-08-30] MEDS: Sodium Chloride 0.9% 1,000 ML IV SCH ×3 (00:30→18:57)
[2019-08-30] MEDS: HYDROcodone/Acetaminophen 10/325 mg Tablet PO PRN ×4 (02:11→21:58)
[2019-08-30 04:46] LABS: #Eosinphils 0.2 thou/uL (0.0-0.7); #Lymphocytes 1.8 thou/uL (1.20-3.40); #Monocytes 0.6 thou/uL (0.11-0.59); #Neutrophils 9.5 thou/uL (1.40-6.50); %Basophils 0.2 % (0.0-1.0); %Eosinophils 1.5 % (0.0-10.0); %Lymphocytes 15.2 % (21.0-51.0); %Neutrophils 78.1 % (42.0-75.0); Hemoglobin 10.1 g/dL (12.0-16.0); Mean Corpuscular HGB CONC 32.1 g/dL (32.0-36.0); Mean Corpuscular Hemoglobin 29.4 pg (27.0-31.0); Mean Corpuscular Volume 91.5 fL (78.0-98.0); Mean Platelet Volume 7.3 fL (7.4-10.4); Platelet Count 312 thou/uL (130-400); RBC Distribution Width 15.3 % (11.5-14.5); Red Blood Cell (RBC) Count 3.43 mill/uL (4.20-5.40); White Blood Cell (WBC) Count 12.1 thou/uL (4.8-10.8)
[2019-08-30 05:11] LABS: Anion Gap 12 mmol/L (10-20); BUN (Urea Nitrogen) 5 mg/dL (9.8-20.1); Calc. Creatinine Clearance 115 mL/min (70-130); Carbon Dioxide 25 mmol/L (23-31); Chloride 108 mmol/L (98-107); Estimated GFR-MDRD Greater than 90; Glucose 110 mg/dL (80-115); Magnesium 1.5 mg/dL (1.6-2.6); Potassium 3.4 mmol/L (3.5-5.1); Sodium 142 mmol/L (136-145)
[2019-08-30 05:18] LABS: Calcium 5.8 mg/dL (7.8-10.44)
[2019-08-30] MEDS ORDERED: Calcium Gluconate 4.6 MEQ in Sodium Chloride 0.9% 100 ML IVPB SCH (07:41)
[2019-08-30] MEDS ORDERED: Potassium Chloride 20 MEQ TAB PO SCH (07:45)
[2019-08-30] MEDS ORDERED: Magnesium 2 GM/50 ML 2 GM in Premix Bag 1 BAG IVPB SCH (07:45)
--- NOTE | 2019-08-30 08:25 | PDOC.HOSPP ---
- Subjective Encounter Date: 08/30/19 Encounter Time: 08:00 Subjective: Ms Kuo is seen this morning as a follow up for abdominal pain, UTI, colon cancer and abnormal electrolytes. She states her pain has been a 5/10 even with the fentanyl patch on but has been helped with the norco. No overnight events. - Objective Vital Signs & Weight: Weight Weight 203 lb 3 oz I&O: 08/29/19 08/30/19 08/31/19 06:59 06:59 06:59 Intake Total 680 1139 Balance 680 1139 Result Diagrams: 08/30/19 04:25 08/30/19 04:25 Additional Labs: Laboratory Tests 08/30/19 04:25 Calcium 5.8 L* Magnesium 1.5 L Hospitalist ROS - Medication Medications: Active Medications Generic Name Dose Route Start Last Admin Trade Name Freq PRN Reason Stop Dose Admin Hydrocodone Bitart/Acetaminophen 2 tab 08/29/19 00:47 08/30/19 07:09 [place] 10/325 PO 2 tab Q6H PRN Administration Severe Pain (7-10) Calcium Carbonate 1,000 mg 08/28/19 21:00 08/29/19 20:11 Tums PO 1,000 mg BID ZARIA Administration Enoxaparin Sodium 40 mg 08/29/19 09:00 08/29/19 08:19 Lovenox SC Not Given 0900 ZARIA Fentanyl 25 mcg 08/29/19 12:00 08/29/19 12:57 Duragesic TD 25 mcg Q3D ZARIA Administration Sodium Chloride 1,000 mls @ 75 mls/hr 08/28/19 16:38 08/30/19 00:30 Normal Saline 0.9% IV 1,000 mls .[id number] ZARIA Administration Cefepime HCl 2 gm/ Sodium 100 mls @ 200 mls/hr 08/28/19 23:59 08/30/19 00:29 Chloride IVPB 100 mls 1200,2359 ZARIA Administration Levofloxacin 750 mg/ Device 150 mls @ 100 mls/hr 08/29/19 13:00 08/29/19 13: 07 IVPB 150 mls 1300 ZARIA Administration Metoprolol Tartrate 50 mg 08/29/19 09:00 08/29/19 20:11 Lopressor PO 50 mg BID ZARIA Administration Morphine Sulfate 2 mg 08/29/19 00:48 05/11/20 05:08 Morphine SLOW IVP 2 mg Q4H PRN Administration Breakthrough Pain Pantoprazole Sodium 40 mg 08/29/19 09:00 08/29/19 08:21 Protonix PO 40 mg DAILY ZARIA Administration Sodium Chloride 10 ml 08/29/19 09:00 08/29/19 20:11 Flush - Normal Saline IVF 10 ml Q12HR ZARIA Administration Sodium Chloride 10 ml 08/28/19 22:05 08/28/19 23:58 Flush - Normal Saline IVF 10 ml PRN PRN Administration Saline Flush Venlafaxine HCl 75 mg 08/29/19 09:00 08/29/19 08:21 Effexor Xr PO 75 mg DAILY ZARIA Administration - Exam General Appearance: NAD, awake alert Neck: supple, symmetric, no JVD, no lymphadenopathy Heart: RRR, no murmur, no gallops, no rubs Respiratory: CTAB, no wheezes, no rales, no ronchi Gastrointestinal: soft, non-distended, tender to palpation Gastrointestinal - other findings: palpable mass to lower R quadrant Extremities: no cyanosis, no edema Skin: normal turgor, no lesions Neurological: no focal deficits Musculoskeletal: normal tone, normal strength Psychiatric: normal affect, normal behavior Hosp A/P (1) Abdominal pain Code(s): R10.9 - UNSPECIFIED ABDOMINAL PAIN Status: Acute Qualifiers: Abdominal location: right lower quadrant Qualified Code(s): R10.31 - Right lower quadrant pain (2) Hypocalcemia Code(s): E83.51 - HYPOCALCEMIA Status: Acute (3) Hypokalemia Code(s): E87.6 - HYPOKALEMIA Status: Acute (4) UTI (urinary tract infection) Status: Acute (5) Hypertension Code(s): I10 - ESSENTIAL (PRIMARY) HYPERTENSION Status: Chronic Qualifiers: Hypertension type: essential hypertension Qualified Code(s): I10 - Essential (primary) hypertension (6) Metastatic colon cancer in female Code(s): C78.5 - SECONDARY MALIGNANT NEOPLASM OF LARGE INTESTINE AND RECTUM Status: Chronic - Plan Hypokalemia, Hypocalcemia: Continue to replace potassium, magnesium, calcium Await palliative care consult to discuss goals of care Appreciate oncology consult- will continue to follow Waiting on blood and urine cultures to result- no growth currently, continue broad spectrum antibiotics Pain management- breakthrough pain being controlled with norco Restart norvasc
[2019-08-30] MEDS: Potassium Chloride 20 MEQ TAB PO SCH ×2 (08:48→17:20)
[2019-08-30] MEDS: Calcium Carbonate 500 MG ChewTAB PO SCH ×2 (08:50→20:25)
[2019-08-30] MEDS: Amlodipine 10 MG TAB PO SCH (08:50)
[2019-08-30] MEDS: Enoxaparin Sodium 40 MG/0.4 ML SYRINGE SC SCH (08:51)
[2019-08-30] MEDS: Metoprolol Tartrate 100 MG TAB PO SCH ×2 (08:51→20:25)
[2019-08-30] MEDS: Venlafaxine HCl XR 75 MG CAP PO SCH (08:52)
--- NOTE | 2019-08-30 13:52 | PDOC.MOPN ---
Interval History: States pain controlled with fentanyl - Vital Signs Vital Signs: Vital Signs (12 hours) Temp Pulse Resp BP BP Pulse Ox 08/30/19 08:50 60 137/77 08/30/19 08:00 99.1 F 60 18 137/77 97 Weight Admit Weight 203 lb 3 oz Weight 203 lb 3 oz - Physical Exam General: Alert, Oriented x3, No acute distress HEENT: Atraumatic, PERRLA, EOMI, Mucous membr. moist/pink Lungs: Clear to auscultation, Normal air movement Cardiovascular: Regular rate, Normal S1, Normal S2, No murmurs, Gallops, Rubs Abdomen: Other Neurological: Normal gait, Normal speech, Strength at 5/5 X4 ext, Normal tone, Sensation intact, Cranial nerves 3-12 NL, Reflexes 2+ Psych/Mental Status: Mental status NL, Mood NL - Labs Result Diagrams: 08/30/19 04:25 08/30/19 04:25 Lab results: Laboratory Results - last 24 hr 08/30/19 04:25: WBC 12.1 H, RBC 3.43 L, Hgb 10.1 L, Hct 31.4 L, MCV 91.5, MCH 29.4, MCHC 32.1, RDW 15.3 H, Plt Count 312, MPV 7.3 L, Neutrophils % 78.1 H, Lymphocytes % 15.2 L, Monocytes % 5.0, Eosinophils % 1.5, Basophils % 0.2, Neutrophils # 9.5 H, Lymphocytes # 1.8, Monocytes # 0.6 H, Eosinophils # 0.2, Basophils # 0.0 08/30/19 04:25: Sodium 142, Potassium 3.4 L, Chloride 108 H, Carbon Dioxide 25, Anion Gap 12, BUN 5 L, Creatinine 0.70, Estimated GFR (MDRD) Greater than 90, Glucose 110, Calcium 5.8 L*, Magnesium 1.5 L 08/29/19 15:03: Sodium 142, Potassium 3.5, Chloride 108 H, Carbon Dioxide 26, Anion Gap 12, BUN 6 L, Creatinine 0.76, Estimated GFR (MDRD) Greater than 90, Glucose 110, Calcium 6.0 L Status: lab reviewed by me A/P - Problem (1) Abdominal pain Current Visit: Yes Code(s): R10.9 - UNSPECIFIED ABDOMINAL PAIN Status: Acute Qualifiers: Abdominal location: right lower quadrant Qualified Code(s): R10.31 - Right lower quadrant pain (2) Metastatic colon cancer in female Current Visit: No Code(s): C78.5 - SECONDARY MALIGNANT NEOPLASM OF LARGE INTESTINE AND RECTUM Status: Chronic - Plan Plan: Continue fentanyl 25mcg patch, working well. Only needed norco once today Hold Stivarga. Home in am with palliative care. She does not want hospice at this time.
--- NOTE | 2019-08-30 14:48 | PDOC.EVN ---
Event Note - Event Note Event Note: Ms. Taylor was seen and examined and discussed with Salome FARR. She initially said her pain level was at a 6/10, but now she isays it is better controlled. She continues to maintain a good appetite. On exam she has some mild tenderness in the lower left, and mid abdomen, palpable fullness, and good bowel sounds. No lower extremity edema. She has decided to forgo chemotherapy, and go home with Palliative Care. Once her electrolytes are replaced she can be discharged home on oral pain medication.
[2019-08-31] MEDS: Morphine 2 MG/ML SYRINGE SLOW IVP PRN ×2 (04:34→08:24)
[2019-08-31] MEDS: HYDROcodone/Acetaminophen 10/325 mg Tablet PO PRN (06:27)
[2019-08-31 06:50] LABS: #Basophils 0.1 thou/uL (0.0-0.2); #Eosinphils 0.2 thou/uL (0.0-0.7); #Monocytes 0.6 thou/uL (0.11-0.59); #Neutrophils 9.7 thou/uL (1.40-6.50); %Basophils 0.5 % (0.0-1.0); %Eosinophils 1.3 % (0.0-10.0); %Lymphocytes 15.7 % (21.0-51.0); %Neutrophils 77.5 % (42.0-75.0); Hemoglobin 10.8 g/dL (12.0-16.0); Mean Corpuscular HGB CONC 31.2 g/dL (32.0-36.0); Mean Corpuscular Hemoglobin 28.7 pg (27.0-31.0); Platelet Count 386 thou/uL (130-400); RBC Distribution Width 15.4 % (11.5-14.5); Red Blood Cell (RBC) Count 3.77 mill/uL (4.20-5.40); White Blood Cell (WBC) Count 12.6 thou/uL (4.8-10.8)
[2019-08-31 06:59] LABS: Anion Gap 13 mmol/L (10-20); BUN (Urea Nitrogen) 5 mg/dL (9.8-20.1); Calc. Creatinine Clearance 120 mL/min (70-130); Calcium 6.6 mg/dL (7.8-10.44); Carbon Dioxide 27 mmol/L (23-31); Chloride 110 mmol/L (98-107); Estimated GFR-MDRD Greater than 90; Glucose 106 mg/dL (80-115); Sodium 146 mmol/L (136-145)
[2019-08-31 07:14] LABS: Magnesium 1.6 mg/dL (1.6-2.6); Phosphorus 2.8 mg/dL (2.3-4.7)
[2019-08-31] MEDS: Ondansetron PF 4 MG/2 ML Vial IVP SCH ×2 (07:30→08:25)
--- NOTE | 2019-08-31 07:59 | PDOC.FMACP ---
Advance Care Planning - Problem (1) Palliative care encounter Status: Acute Code(s): Z51.5 - ENCOUNTER FOR PALLIATIVE CARE (2) Metastatic colon cancer in female Status: Chronic Code(s): C78.5 - SECONDARY MALIGNANT NEOPLASM OF LARGE INTESTINE AND RECTUM - Note Summary: Advanced Care Planning was discussed. The diagnosis, prognosis and goals of care were discussed. Appropriate forms and documentation to accomplish the goals of care were discussed. All questions were answered. The Palliative Care Team will be engaged to assist with completion of any outstanding forms that are needed.
--- NOTE | 2019-08-31 08:04 | PDOC.PALCO ---
Palliative Care Consult - Consult Details Requesting Physician: Dr Guzmán Reason for Consult: goals of care, advance directives assistance, complex decision-making - Pertinent HPI 68 year old female who has a history for colon cancer, currently receiving chemotherapy for treatment. Increase in abdominal pain and fever over the past week and primarily to right lower quadrant. Denies nausea, or vomiting. Also reports bowel movements that have had a presence of mucous. Secondary to no relieving factors she presented to the emergency room for evaluation. Admitted for antibiotics secondary to elevated white count and lactic acid and further evaluation and medical management. - Pertinent PMH Colon cancer, hypertension, and depression - Social History Smoking Status: Never smoker Smoking: no tobacco exposure Alcohol Use: none Drug Use History: none Living Situation: - Medications MAR Reviewed: Yes - Allergies Allergies/Adverse Reactions: Allergies Allergy/AdvReac Type Severity Reaction Status Date / Time prochlorperazine Allergy Severe Hives Verified 08/28/19 16:56 tetanus and diphtheria Allergy Severe HEMATOMA Verified 08/28/19 16:56 toxoids AT INJECTION SITE sulfamethoxazole Allergy Verified 08/28/19 16:56 [From Bactrim] trimethoprim [From Bactrim] Allergy Verified 08/28/19 16:56 - Subjective Awake, alert, at time of assessment states pain is currently managed. Good appetite. - ROS Constitutional: alert, weakness ENT: other (Denies throat irritation, congestion) Cardiology: other (Negative for chest pain or palpitations) Gastrointestinal: abdominal pain, other (Denies nausea, vomiting.) Genitourinary: other (Negative for dysuria, frequency) Neurological: other (Denies numbness, dizziness) Skin: other (Negative for rash, puritis) - Objective Vital Signs: Vital Signs - Most Recent Temp Pulse Resp BP Pulse Ox 98.1 F 58 L 16 165/70 H 97 08/30/19 19:54 08/30/19 19:54 08/30/19 19:54 08/30/19 19:54 08/30/19 19:54 Palliative Performance Scale: 60 - Advance Directives Medical Power of Contact Center Agent: - Physical Exam Constitutional: NAD HEENT: EOMI, moist MMs, sclera anicteric Respiratory: no wheezing, unlabored breathing Cardiovascular: RRR Gastrointestinal: soft Deviation from normal: Tender Genitourinary: continent Musculoskeletal: no cyanosis, no clubbing, pulses present Neurology: moves all 4 limbs, no focal deficits Skin: cap refill <2 seconds, no lesions, no rash Psychiatric: A&O x 3, normal mood - Problem List (1) Palliative care encounter Code(s): Z51.5 - ENCOUNTER FOR PALLIATIVE CARE Current Visit: Yes Status: Acute (2) Metastatic colon cancer in female Code(s): C78.5 - SECONDARY MALIGNANT NEOPLASM OF LARGE INTESTINE AND RECTUM Current Visit: No Status: Chronic - Plan/Recommendations Plan: Life review, was born in [place] and has lived in the [facility] area, currently living in [place] with her . Has one daughter and grandchildren. Most important to her is "living". Discussed favorite things and Ms Taylor states that is being home with family. Goal is to return to the home setting, discussed Goal of Care related to her current colon cancer. Discussed continuing oral chemo and going home with home health/palliative care and transition to hospice when she is ready to transition to full palliation and comfort measures for management of cancer. Discussed safety measures for home setting including walker/cane for possible episodes of weakness. Addressed pain management and maintaining adequate coverage to not exceed pain threshold. Consideration for home health in home setting for OT to assist with and transfers for safety as well as PT to ensure optimal strength, will consider. May only be open or qualify for Palliative. Please also refer to Dulce Estrada RN notes Palliative Care. Palliative Care to follow up to revisit Advance Directives 08/31/2019, introduced. [75] minutes spent on this encounter with >50% of the time in counseling and coordination of care. Thank you for this very appropriate consult.
[2019-08-31] MEDS ORDERED: Magnesium Oxide 400 MG TAB PO SCH (09:00)
[2019-08-31] MEDS: Potassium Chloride 20 MEQ TAB PO SCH ×2 (09:13→16:30)
[2019-08-31] MEDS: Amlodipine 10 MG TAB PO SCH (09:14)
[2019-08-31] MEDS: Calcium Carbonate 500 MG ChewTAB PO SCH (09:14)
[2019-08-31 09:22] VITALS: BP 143/79
[2019-08-31] MEDS: Metoprolol Tartrate 100 MG TAB PO SCH (09:22)
[2019-08-31] MEDS: Enoxaparin Sodium 40 MG/0.4 ML SYRINGE SC SCH (09:22)
[2019-08-31] MEDS: Venlafaxine HCl XR 75 MG CAP PO SCH (09:24)
--- NOTE | 2019-08-31 10:29 | PDOC.HOSPP ---
- Subjective Encounter Date: 08/31/19 Encounter Time: 10:00 Subjective: Ms Kuo was seen as a follow up for UTI and colon cancer. This morning she vomited twice but since then has been feeling well, she felt the pain medication on an empty stomach made her feel ill. She tolerated breakfast without any issues. She states she feels ready to go home. - Objective Vital Signs & Weight: Vital Signs (12 hours) Pulse BP 08/31/19 09:14 67 143/79 H Weight Admit Weight 203 lb 3 oz Weight 203 lb 3 oz I&O: 08/30/19 08/31/19 09/01/19 06:59 06:59 06:59 Intake Total 1139 1400 Balance 1139 1400 Result Diagrams: 08/31/19 06:31 08/31/19 06:31 Hospitalist ROS - Medication Medications: Active Medications Generic Name Dose Route Start Last Admin Trade Name Freq PRN Reason Stop Dose Admin Hydrocodone Bitart/Acetaminophen 2 tab 08/29/19 00:47 08/31/19 06:27 [place] 10/325 PO 2 tab Q6H PRN Administration Severe Pain (7-10) Amlodipine Besylate 10 mg 08/30/19 09:00 08/31/19 09:14 Norvasc PO 10 mg DAILY ZARIA Administration Calcium Carbonate 1,000 mg 08/28/19 21:00 08/31/19 09:14 Tums PO 1,000 mg BID ZARIA Administration Enoxaparin Sodium 40 mg 08/29/19 09:00 08/31/19 09:22 Lovenox SC Not Given 0900 ZARIA Fentanyl 25 mcg 08/29/19 12:00 08/29/19 12:57 Duragesic TD 25 mcg Q3D ZARIA Administration Cefepime HCl 2 gm/ Sodium 100 mls @ 200 mls/hr 08/28/19 23:59 08/30/19 23:57 Chloride IVPB 100 mls 1200,2359 ZARIA Administration Levofloxacin 750 mg/ Device 150 mls @ 100 mls/hr 08/29/19 13:00 08/30/19 12: 29 IVPB 150 mls 1300 ZARIA Administration Magnesium Oxide 400 mg 08/31/19 09:00 08/31/19 09:22 Magnesium Oxide PO 400 mg DAILY ZARIA Administration Metoprolol Tartrate 50 mg 08/29/19 09:00 08/31/19 09:22 Lopressor PO 50 mg BID ZARIA Administration Morphine Sulfate 2 mg 08/29/19 00:48 08/31/19 08:24 Morphine SLOW IVP 2 mg Q4H PRN Administration Breakthrough Pain Pantoprazole Sodium 40 mg 08/29/19 09:00 08/31/19 09:25 Protonix PO 40 mg DAILY ZARIA Administration Potassium Chloride 40 meq 08/30/19 08:00 08/31/19 09:13 K-Dur PO 40 meq BID-WM ZARIA Administration Sodium Chloride 10 ml 08/29/19 09:00 08/31/19 09:25 Flush - Normal Saline IVF 10 ml Q12HR ZARIA Administration Sodium Chloride 10 ml 08/28/19 22:05 08/28/19 23:58 Flush - Normal Saline IVF 10 ml PRN PRN Administration Saline Flush Venlafaxine HCl 75 mg 08/29/19 09:00 08/31/19 09:24 Effexor Xr PO 75 mg DAILY ZARIA Administration - Exam General Appearance: NAD, awake alert Eye: PERRL, anicteric sclera Neck: supple, symmetric, no JVD, no lymphadenopathy Heart: RRR, no murmur, no gallops, no rubs Respiratory: CTAB, no wheezes, no rales, no ronchi Gastrointestinal: soft, non-distended, normal bowel sounds, tender to palpation Gastrointestinal - other findings: palpable mass to R lower quadrant Neurological: no focal deficits Musculoskeletal: normal tone, normal strength Psychiatric: normal affect, normal behavior Hosp A/P (1) Abdominal pain Code(s): R10.9 - UNSPECIFIED ABDOMINAL PAIN Status: Acute Qualifiers: Abdominal location: right lower quadrant Qualified Code(s): R10.31 - Right lower quadrant pain (2) Hypocalcemia Code(s): E83.51 - HYPOCALCEMIA Status: Acute (3) Hypokalemia Code(s): E87.6 - HYPOKALEMIA Status: Resolved (4) UTI (urinary tract infection) Status: Acute (5) Hypertension Code(s): I10 - ESSENTIAL (PRIMARY) HYPERTENSION Status: Chronic Qualifiers: Hypertension type: essential hypertension Qualified Code(s): I10 - Essential (primary) hypertension (6) Metastatic colon cancer in female Code(s): C78.5 - SECONDARY MALIGNANT NEOPLASM OF LARGE INTESTINE AND RECTUM Status: Chronic - Plan Potassium and magnesium back to normal range, will continue to replace calcium which is still low though no longer critically low Go home with palliative care services, not ready for hospice services at this time Appreciate oncology consult- will continue to follow Will continue Levaquin Pain management- breakthrough pain being controlled with norco, fentanyl patch in place HTN: Bp stable
[2019-08-31 10:46] VITALS: TEMP 98.4
--- NOTE | 2019-08-31 11:22 | PQF ---
ELSA TUCKER TONI MD [id number] CLINICAL DOCUMENTATION IMPROVEMENT CLARIFICATION FORM: ICD-10 Updated PLEASE DO AN ADDENDUM TO THE PROGRESS NOTE WITH ANY DOCUMENTATION UPDATES OR ADDITIONS AND CARRY THROUGH TO DC SUMMARY. THANK YOU. DATE: 08/31/2019 ,09/01/2019 ATTN: JANES GILLETTE,QUIN Please exercise your independent, professional judgment in responding to the clarification form. Clinical indicators are provided on the bottom of this form for your review. Please check appropriate box(es): [ ] Sepsis present on admission [ ] Sepsis NOT present on admission [ ] Unable to determine [ ] Due to: UTI [ ] Not Due to UTI [ ] Localized infection without sepsis [ ] Other diagnosis [ ] Unable to determine For continuity of documentation, please document condition throughout progress notes and discharge summary. Thank You. CLINICAL INDICATORS - SIGNS / SYMPTOMS / LABS / RESULTS AND LOCATION IN MR 08/27 LACTIC ACID 3.4 08/27 WBC 12.1 08/29 WBC 12.1 08/30 WBC 12.6 08/28/2019 ED REPORT: RESP 24, TEMP 100.0, FEVER, ABD PAIN X 1 WEEK, CURRENT CHEMO TREATMENTS FOR COLORECTAL CANCER. FINAL ED DIAGNOSIS: UTI, COLON CA, HYPOCALCEMIA, SEPSIS 08/27 H&P ( [facility]) SHE HAD SUBJECTIVE FEVER OF 102 AT HOME. 08/28, 08/29 , 08/30 (PN ( [facility]) A/P: 2). UTI RISK: DX: UTI ( H&P/[facility]) 08/27 IMMUNOCOMPROMISED/ CURRENT CHEMOTHERAPY TREATMENTS (ED REPORT) 08/27 TREATMENTS: MAXIPIME IV ( 08/27 - PRESENT) LEVAQUIN IV ( 08/28 - PRESENT) THANK YOU! BETO (This form is maintained as a part of the permanent medical record) 2014 [email or web address], [employer]. All Rights Reserved [email or web address]
[2019-08-31] MEDS: Cefepime 2 GM in Sodium Chloride 0.9% 100 ML IVPB SCH (12:14)
--- NOTE | 2019-08-31 19:45 | DIS ---
DATE OF ADMISSION: 08/28/2019 DATE OF DISCHARGE: 08/31/2019 DISCHARGE DISPOSITION AND FOLLOWUP: Patient home with her . Patient was seen and examined on the day of discharge. Denies any new complaints. CONSULTS: Palliative Care team and Oncology. CLINICAL COURSE: The patient is a very pleasant 68-year-old female, with a past medical history significant for colon cancer, which she is currently getting oral chemo treatment for. She presented to the ER for abdominal pain and fever. The pain had begun approximately a week before and was worse in the right lower quadrant which is where her tumor is from her colon cancer. She was admitted to the Oncology Unit. Her urine was significant for a UTI and her white blood cell count was elevated at 12. She was started on broad-spectrum antibiotics and blood and urine cultures were collected. While here, her electrolytes were markedly low. Potassium as low as 2.9, calcium as low as 5.3, magnesium at 1, all of which were replaced in-house. Upon discharge, her potassium was 4.0, calcium was 6.6, magnesium was 1.6, and phosphorus 2.8. Oncology came to see the patient and discussed future treatment options as it seems she is not responding as hoped to the oral chemo. Palliative care and hospice services were both discussed with the patient. When talking with the palliative care team in the hospital, patient initially said that she did not want to continue the chemo treatment as it did not seem to be benefitting her, and she was interested in going home with home health palliative care. However, prior to discharge, she re-ordered her chemo medications and after having multiple home health palliative care groups visited her, she decided not to go home on palliative care services but to discuss it further with her and then follow up with her PCP. FINAL DIAGNOSES: 1. Abdominal pain. 2. Hypocalcemia. 3. Hypokalemia. 4. Urinary tract infection. 5. Hypertension. 6. Metastatic colon cancer. DISCHARGE MEDICATIONS: New medications 1. Drisdol 1.25 mg p.o. q. 7 days. 2. Levaquin 750 mg p.o. daily for five days. 3. Magnesium oxide 400 mg p.o. daily. 4. Tums 1000 mg p.o. b.i.d. 5. Potassium chloride 40 mEq p.o. twice a day. She is also to resume her home medications. 1. Amlodipine 10 mg p.o. daily. 2. Cardura 2 mg p.o. at bedtime. 3. Hydrocodone 10/325 one tablet p.o. every 6 hours as needed for pain. 4. Metoprolol tartrate 50 mg p.o. b.i.d. 5. Omeprazole 20 mg p.o. daily. 6. Effexor XR 75 mg p.o. daily. DISCHARGE INSTRUCTIONS: Patient was encouraged to follow up with her physician within this next week and have her labs redrawn to check her BMP and her magnesium levels. She is also encouraged to follow up with her physician when she decides if she would like to continue on a palliative jail health service or if it is something she does not see herself desiring at this time. TIME SPENT: Total time coordinating the discharge of this patient was 35 minutes. Job ID: [id number] [id number]
[2019-09-04] MEDS ORDERED: Ergocalciferol 1.25 MG(50,000 UNITS) CAP PO SCH (09:00)
== END 2019-08-31 16:45 | disposition home health service (06) | DRG 690 ==
LOC: ERS 12:13 → ONC 15:11
PROVIDERS: ADMIT Internal Medicine; ATTEND Internal Medicine
DX: N39.0 Urinary tract infection, site not specified (principal); C19 Malignant neoplasm of rectosigmoid junction; K92.1 Melena; E83.51 Hypocalcemia; E87.6 Hypokalemia; Z51.5 Encounter for palliative care; I10 Essential (primary) hypertension; F32.9 Major depressive disorder, single episode, unspecified; Z90.710 Acquired absence of both cervix and uterus; Z88.2 Allergy status to sulfonamides; Z88.8 Allergy status to other drugs, medicaments and biological substances; Z88.6 Allergy status to analgesic agent
CPT/HCPCS: 36415; 71045; 74177; 80048; 80053; 81003; 81015; 82306; 83605; 83690; 83735; 84100; 85025; 87040; 87086; 87804; 96365; 96366; 96368; 96375; J0692; J1642; J1650; J1956; J2270; J2405; J2765; J3370; J3475; J3490; J7030; Q9967